=== PATIENT | male | born 1960 | race Caucasian/White ===

== ENCOUNTER 2016-07-18 07:40 | Day surgery (SDC) | payer OTHER ==
[2016-07-17 12:23] VITALS: BMI 21.7
[2016-07-18 09:18] VITALS: TEMP 97.5
[2016-07-18] MEDS ORDERED: PROPOFOL 20 ML ONE ×5 (09:21)
[2016-07-18] MEDS ORDERED: LIDOCAINE HCL/PF 2% SDV 5ML VIAL ONE (09:21)
[2016-07-18 11:09] VITALS: BP 117/70; PULSE 73
--- NOTE | 2016-07-19 11:48 | PATH ---
Surgical Pathology Report Patient Name: ALEX LAUGHLIN [facility]. Rec. #: [id number] /Age/Gender: 1960 (Age: 55) / M Account: [id number] Location: [facility]-ENDOSCOPY Taken: 07/18/2016 Received: 07/18/2016 Reported: 07/19/2016 Physicians: Aung Sharma M.D. Specimen(s) Received A: BX GASTRIC BODY B: BX MID ESOPHAGUS Clinical History Dysphagia, colon screening Gastritis, colon diverticuli Final Diagnosis A. STOMACH, BODY, BIOPSY: MODERATE TO SEVERE CHRONIC ACTIVE GASTRITIS. IMMUNOSTAIN FOR H. PYLORI IS POSITIVE (MODERATE NUMBER OF ORGANISMS). B. MID ESOPHAGUS, BIOPSY: SQUAMOUS EPITHELIUM WITH PAPILLOMATOSIS SUGGESTIVE OF REFLUX ESOPHAGITIS, AND GASTRIC MUCOSA WITH MODERATE CHRONIC ACTIVE GASTRITIS. NO INTESTINAL METAPLASIA IDENTIFIED (NO CHAU'S IDENTIFIED). NO EOSINOPHILIC ESOPHAGITIS IDENTIFIED. Electronically Signed Lamin Dawson M.D. Gross Description A. Received in formalin, labeled "biopsy gastric body" are 4 serna, irregular portions of soft tissue ranging from 0.1-0.4 cm. in greatest dimension. The specimens are submitted in toto in one cassette. B. Received in formalin, labeled "biopsy midesophagus" are 3 serna, irregular portions of soft tissue ranging from 0.1-0.2 cm. in greatest dimension. The specimens are submitted in toto in one cassette. 07/18/2016 saudi07/18/2016
== END 2016-07-18 10:35 | disposition home or self-care (01) ==
LOC: JASU-ENDO 07:40
PROVIDERS: ATTEND Internal Medicine Gastroenterology
PROC: 0DB68ZX Excision of Stomach, Via Natural or Artificial Opening Endoscopic, Diagnostic (ICD-10-PCS; 2016-07-18)
PROC: 0DJD8ZZ Inspection of Lower Intestinal Tract, Via Natural or Artificial Opening Endoscopic (ICD-10-PCS; 2016-07-18)
PROC: 0DB58ZX Excision of Esophagus, Via Natural or Artificial Opening Endoscopic, Diagnostic (ICD-10-PCS; principal; 2016-07-18 08:30)
DX: R13.10 Dysphagia, unspecified (principal); Z12.11 Encounter for screening for malignant neoplasm of colon; K57.30 Diverticulosis of large intestine without perforation or abscess without bleeding; G20 Parkinson's disease
CPT/HCPCS: 43239; G0121; 88305-TC; 88342-TC

== ENCOUNTER 2016-10-17 20:19 | Emergency (ER) | payer OTHER ==
[2016-10-17 20:31] VITALS: BP 151/98; PULSE 66; TEMP 97.6; BMI 20.3
--- NOTE | 2016-10-17 20:34 | PDOC ---
History of Present Illness - General History Source: Patient Exam Limitations: No Limitations - History of Present Illness Initial Comments: 10/17/16 21:02 56 y/o M with a PMHx of Parkinsons disease, JENNIFER presents to the ED with bloating and upper abdominal pressure for 2-3 weeks. He reports that the pressure causes him to have some difficulty catching his breath. He took a Gas- X today, which made it worse. He denies associated chest pain or abdominal pain. He reports that due to his Parkinsons, he has had decreased food intake because he has difficulty swallowing. His last BM was today at noon. He recently had an endoscopy and colonoscopy, which came back normal. He also recently had H.pylori and was on antibiotics for 14 days. Denies fever, chills, nausea, vomiting, diarrhea, dysuria. PCP: Dr. Carlos Arias GI: Dr. Aung Sharma <Evie Cortes - Last Filed: 10/17/16 21:02> <China Angel - Last Filed: 10/17/16 23:52> - General Chief Complaint: Pain, Acute Stated Complaint: STATES HE HAS PRESSURE IN UPPER ABDOMEN Time Seen by Provider: 10/17/16 20:21 Past History <Evie Cortes - Last Filed: 10/17/16 21:02> - Past Medical History GI Disorders: Yes (DYSPHAGIA) Other medical history: PARKINSON - Surgical History Appendectomy: Yes - Psycho/Social/Smoking Cessation Hx Anxiety: No Suicidal Ideation: No Smoking History: Never smoked Have you smoked in the past 12 months: No If you are a former smoker, when did you quit?: 25 YRS AGO Information on smoking cessation initiated: No Hx Alcohol Use: No Drug/Substance Use Hx: No Substance Use Type: None Hx Substance Use Treatment: No <China Angel - Last Filed: 10/17/16 23:52> - Past Medical History Allergies/Adverse Reactions: Allergies Allergy/AdvReac Type Severity Reaction Status Date / Time No Known Allergies Allergy Verified 10/17/16 20:21 Home Medications: Ambulatory Orders Atorvastatin Ca [Lipitor] 20 mg PO HS 07/17/16 Carbidopa/Levodopa [Carbidopa-Levodopa 25-100 Tab] 1 each PO TID 07/17/16 Clonazepam [Klonopin -] 0.5 mg PO HS 07/17/16 Ropinirole HCl [Ropinirole ER] 12 mg PO DAILY 07/17/16 Review of Systems - Review of Systems Comments:: 10/17/16 21:02 GENERAL/CONSTITUTIONAL: No fever or chills. No weakness. HEAD, EYES, EARS, NOSE AND THROAT: No change in vision. No ear pain or discharge. No sore throat. CARDIOVASCULAR: No chest pain or shortness of breath. RESPIRATORY: No cough, wheezing, or hemoptysis. GASTROINTESTINAL: (+) abdominal pressure/bloating. No nausea, vomiting, diarrhea or constipation. GENITOURINARY: No dysuria, frequency, or change in urination. MUSCULOSKELETAL: No joint or muscle swelling or pain. No neck or back pain. SKIN: No rash NEUROLOGIC: No headache, vertigo, loss of consciousness, or change in strength/ sensation. ENDOCRINE: No increased thirst. No abnormal weight change. HEMATOLOGIC/LYMPHATIC: No anemia, easy bleeding, or history of blood clots. ALLERGIC/IMMUNOLOGIC: No hives or skin allergy. <Evie Cortes - Last Filed: 10/17/16 21:02> *Physical Exam - Vital Signs Last Vital Signs Temp Pulse Resp BP Pulse Ox 97.6 F 66 18 151/98 100 10/17/16 20:25 10/17/16 20:25 10/17/16 20:25 10/17/16 20:25 10/17/16 20:25 - Physical Exam Comments: 10/17/16 21:02 GENERAL: Awake, alert, and fully oriented, in no acute distress. Thin. HEAD: No signs of trauma EYES: PERRLA, EOMI, sclera anicteric, conjunctiva clear ENT: Auricles normal inspection, hearing grossly normal, nares patent, oropharynx clear without exudates. Moist mucosa NECK: Normal ROM, supple, no lymphadenopathy, JVD, or masses LUNGS: Breath sounds equal, clear to auscultation bilaterally. No wheezes, and no crackles HEART: Regular rate and rhythm, normal S1 and S2, no murmurs, rubs or gallops ABDOMEN: Soft, nontender, normoactive bowel sounds. No guarding, no rebound. No masses EXTREMITIES: Normal range of motion, no edema. No clubbing or cyanosis. No cords, erythema, or tenderness NEUROLOGICAL: Cranial nerves II through XII grossly intact. Normal speech, normal gait SKIN: Warm, Dry, normal turgor, no rashes or lesions noted. <Evie Cortes - Last Filed: 10/17/16 21:02> - Vital Signs Last Vital Signs Temp Pulse Resp BP Pulse Ox 97.6 F 66 18 151/98 100 10/17/16 20:25 10/17/16 20:25 10/17/16 20:25 10/17/16 20:25 10/17/16 20:25 <China Angel - Last Filed: 10/17/16 23:52> Heart Score/ECG Review - History History: Slightly suspicious - Electrocardiogram EKG: Normal - Age Age: 45-65 - Risk Factors Risk Factors Heart Score: Yes Hx Hypercholesterolemia Based on the list above the patient has:: 1-2 risk factors - Troponin Troponin: </= normal limit - Score Heart Score - Total: 2 - ECG Impressions Comment:: EKG read 20:30- sinus mynor 59 bpm, no ST/T changes <China Angel - Last Filed: 10/17/16 23:52> ED Treatment Course - LABORATORY CBC & Chemistry Diagram: 10/17/16 20:56 10/17/16 20:56 <China Angel - Last Filed: 10/17/16 23:52> Medical Decision Making - Medical Decision Making Pt with history of Parkinson's, has had GI motility issues related to his medication. He is following up with Dr. Sharma and his neurologist. He states that the symptoms are worse with certain foods. Today it was worse than usual. Symptoms resolved as he arrived in ED. No acute findings on EKG. Labs wnl with exception of TBili. US wnl. Stable for DC home with outpatient f/u. <China Angel - Last Filed: 10/17/16 23:52> *DC/Admit/Observation/Transfer - Attestations Scribe Attestion: 10/17/16 21:03 Documentation prepared by Evie Cortes, acting as adjunct faculty for medical terminology for China Angel MD. <Evie Cortes - Last Filed: 10/17/16 21:02> - Discharge Dispostion Admit: No <China Angel - Last Filed: 10/17/16 23:52> Diagnosis at time of Disposition: Epigastric pain - Discharge Dispostion Disposition: HOME Condition at time of disposition: Stable - Referrals Referrals: Carlos Arias MD [Primary Care Provider] - - Patient Instructions Printed Discharge Instructions: DI for Epigastric Pain
[2016-10-17 21:19] LABS: BASOPHIL 0.2 % (0-2.0); EOSINOPHIL 1.6 % (0-4.5); MCH 28.3 pg (25.7-33.7); MCHC 33.8 g/dl (32.0-35.9); MEAN CELL VOLUME 83.7 fl (80-96); MEAN PLT VOLUME 7.8 fl (7.5-11.1); NEUTROPHILS 60.6 % (42.8-82.8); PLATELET COUNT 241 K/MM3 (134-434); RDW 13.3 % (11.9-15.9); WHITE BLOOD COUNT 4.6 K/mm3 (4.0-10.8)
[2016-10-17 21:29] LABS: ALBUMIN 4.8 g/dl (3.5-5.0); ALK PHOS 47 U/L (32-92); ANION GAP 7 (8-16); BILIRUBIN,TOTAL 2.3 mg/dl (0.2-1.0); CALCIUM 9.6 mg/dl (8.4-10.2); CO2 29 mmol/L (22-28); CPK 157 IU/L (39-308); GLUCOSE,RANDOM 101 mg/dl (74-106); SGOT/AST 17 U/L (10-42); TOT PROT 6.9 g/dl (6.4-8.3)
[2016-10-17 21:39] LABS: SGPT/ALT 8 U/L (10-40)
[2016-10-17 21:44] LABS: TROPONIN I (DFP) < 0.03 ng/ml (0.03-0.50)
--- NOTE | 2016-10-18 18:22 | EKG ---
Test Reason : Blood Pressure : / mmHG Vent. Rate : 059 BPM Atrial Rate : 059 BPM P-R Int : 138 ms QRS Dur : 078 ms QT Int : 430 ms P-R-T Axes : 069 046 047 degrees QTc Int : 425 ms SINUS BRADYCARDIA NO PREVIOUS ECGS AVAILABLE Confirmed by MD TABARES MARJORY ([id number]) on 10/18/2016 6:22:14 PM Referred By: DR MCDERMOTT Confirmed By:RADHA TABARES MD
== END 2016-10-18 00:18 | disposition home or self-care (01) ==
LOC: FER 20:19
DX: R10.13 Epigastric pain (principal); G20 Parkinson's disease; R13.10 Dysphagia, unspecified; Z87.891 Personal history of nicotine dependence
CPT/HCPCS: 36415; 76705-TC; 80053; 82553; 84484; 85025; 93005; 99282-25

== ENCOUNTER 2016-10-23 05:27 | Emergency (ER) | payer OTHER ==
--- NOTE | 2016-10-23 05:39 | PDOC ---
History of Present Illness - General Chief Complaint: Pain, Acute Stated Complaint: PRESSURE ABDOMEN BACK AND HEADX 2 WEEKS Time Seen by Provider: 10/23/16 05:38 - History of Present Illness Initial Comments: This 56-year-old man with a history of Parkinson's disease presents with persistent epigastric discomfort/bloating and sensation of inability to fully swallow his food. Patient describes discomfort with swallowing radiating to bilateral base of neck occasionally. Patient has known history of digestive issues and was seen here one week ago with similar discomfort. Workup at that point was negative and he was referred back to his federal district clerk, Dr. Sharma. He recently was treated for Helicobacter pylori and re-testing after treatment is pending. Patient states when he was on omeprazole during the time of the H. pylori treatment and previously when he was taking it on its own, he had much diminished symptoms. He states that his federal district clerk however does not want him to be on omeprazole because he does not believe he has GERD. Past History - Past Medical History Allergies/Adverse Reactions: Allergies Allergy/AdvReac Type Severity Reaction Status Date / Time No Known Allergies Allergy Verified 10/23/16 05:30 Home Medications: Ambulatory Orders Atorvastatin Ca [Lipitor] 20 mg PO HS 07/17/16 Carbidopa/Levodopa [Carbidopa-Levodopa 25-100 Tab] 1 each PO TID 07/17/16 Clonazepam [Klonopin -] 0.5 mg PO HS 07/17/16 Ropinirole HCl [Ropinirole ER] 12 mg PO DAILY 07/17/16 Omeprazole 40 mg PO DAILY #20 capsule. 10/23/16 GI Disorders: Yes (DYSPHAGIA) Hypercholesterolemia: Yes - Surgical History Appendectomy: Yes - Psycho/Social/Smoking Cessation Hx Anxiety: No Suicidal Ideation: No Smoking History: Never smoked Have you smoked in the past 12 months: No If you are a former smoker, when did you quit?: 25 YRS AGO Hx Alcohol Use: No Drug/Substance Use Hx: No Substance Use Type: None Hx Substance Use Treatment: No *Physical Exam - Physical Exam Comments: GENERAL: Adult male, masklike facies but alert and oriented 3 HEAD: Normal with no signs of trauma. EYES: PERRLA, EOMI, sclera anicteric, conjunctiva clear. ENT: Ears normal, nares patent, oropharynx clear without exudates. Dry mucous membranes. NECK: Normal range of motion, supple without lymphadenopathy, JVD, or masses. LUNGS: Breath sounds equal, clear to auscultation bilaterally. No wheezes, and no crackles. HEART:Regular rate and rhythm, normal S1 and S2 without murmur, rub or gallop. ABDOMEN:.normal bowel sounds No guarding,tenderness or rebound.No masses No distention. EXTREMITIES: Normal range of motion, no edema. No clubbing or cyanosis. No erythema, or tenderness. NEUROLOGICAL: Cranial nerves II through XII grossly intact. Normal speech. No focal neurological deficits. MUSCULOSKELETAL: Back non-tender to palpation, no CVA tenderness SKIN: Warm, Dry, normal turgor, no rashes or lesions noted. 12-lead electrocardiogram shows sinus bradycardia 57 beats per minute; axis, intervals and wave forms are all normal. It is unchanged from EKG performed Medical Decision Making - Medical Decision Making 10/23/16 06:42 This 56-year-old man with a history of Parkinson's disease presents with recurrent epigastric discomfort and feeling of bloating/difficulty in swallowing. The difficulty in swallowing is not occurring at the throat or proximal esophagus level but is occurring distally. This is a known problem for this patient and he was seen here last week and full workup was negative. Exam is unremarkable 12-lead electrocardiogram was performed and shows no acute abnormalities and is unchanged from last week's EKG Since patient's exam is generally unremarkable without evidence of acute intra- abdominal process, with full workup last week being normal, we will restart the patient on omeprazole 40 mg daily (since he had significantly diminished symptoms when he was taking this medication). He can follow-up with Dr. Sharma to fully discussed risks/benefits of taking a PPI. Meanwhile, if he has worsening of his symptoms or experiences vomiting/fever as she return to the emergency room. The patient will also follow-up with his neurologist within the next 5 days *DC/Admit/Observation/Transfer Diagnosis at time of Disposition: Epigastric discomfort - Discharge Dispostion Disposition: HOME Condition at time of disposition: Stable - Prescriptions Prescriptions: Omeprazole 40 mg PO DAILY #20 capsule.dr - Patient Instructions Printed Discharge Instructions: Gastroparesis Additional Instructions: Omeprazole 40 mg daily Continue other medications as prescribed Follow-up with your neurologist and with Dr. Sharma as scheduled Return to ER if you have severe pain/vomiting/fever
[2016-10-23 05:40] VITALS: BP 131/82; PULSE 60; TEMP 97.3; BMI 18.8
--- NOTE | 2016-10-23 17:43 | EKG ---
Test Reason : Blood Pressure : / mmHG Vent. Rate : 057 BPM Atrial Rate : 057 BPM P-R Int : 140 ms QRS Dur : 072 ms QT Int : 434 ms P-R-T Axes : 066 061 056 degrees QTc Int : 422 ms SINUS BRADYCARDIA SEPTAL INFARCT , AGE UNDETERMINED WHEN COMPARED WITH ECG OF 17-OCT-2016 20:27, SEPTAL INFARCT IS NOW PRESENT Confirmed by MD RAYSA, RADHA ([id number]) on 10/23/2016 5:43:21 PM Referred By: MD ALLEN Confirmed By:RADHA TABARES MD
== END 2016-10-23 06:40 | disposition home or self-care (01) ==
LOC: FER 05:27
DX: R10.13 Epigastric pain (principal); G20 Parkinson's disease; E78.00 Pure hypercholesterolemia, unspecified
CPT/HCPCS: 93005; 99281-25

== ENCOUNTER 2020-10-20 08:27 | Observation (INO) | payer OTHER ==
[2020-10-20 09:07] LABS: BASO % 0.6 % (0-2.0); EOS % 1.2 % (0-4.5); HEMATOCRIT 43.1 % (35.4-49); HEMOGLOBIN 14.7 GM/dL (11.7-16.9); LYMPH % 26.8 % (8-40); MCH 28.6 pg (25.7-33.7); MEAN PLT VOLUME 7.4 fl (7.5-11.1); MONO % 5.8 % (3.8-10.2); NEUT % 65.6 % (42.8-82.8); PLATELET COUNT 239 10^3/uL (134-434); RBC 5.13 M/mm3 (4.00-5.60); RDW 14.2 % (11.9-15.9); WHITE BLOOD COUNT 4.7 K/mm3 (4.0-10.0)
[2020-10-20] MEDS ORDERED: MAG HYDROX/AL HYDROX/SIMETH 30 ML UNIT-DOSE CUP PO ONE (09:13)
[2020-10-20] MEDS ORDERED: FAMOTIDINE 20 MG/50 ML IVPB 20 MG/50 ML MG IVPB ONE ×2 (09:13→09:18)
[2020-10-20 09:14] LABS: INR 0.87 (0.83-1.09); PROTHROMBIN TIME (PATIENT) 10.7 SEC (9.7-13.0)
[2020-10-20] MEDS ORDERED: NITROGLYCERIN 2% OINTMENT - 1GM PACKET TD ONE ×2 (09:14→09:18)
[2020-10-20 09:16] LABS: ACTIVATED PTT 28.6 SECONDS (25.2-36.5)
[2020-10-20] MEDS ORDERED: MAG HYDROX/AL HYDROX/SIMETH 30 ML UNIT-DOSE CUP ONE (09:18)
[2020-10-20 09:25] LABS: CHLORIDE 105 mmol/L (98-107); SODIUM 142 mmol/L (136-145)
[2020-10-20 09:27] LABS: CALCIUM 9.8 mg/dL (8.5-10.1)
[2020-10-20 09:28] LABS: ANION GAP 8 MMOL/L (8-16); BLOOD UREA NITROGEN 13.9 mg/dL (7-18); CO2 30 mmol/L (21-32); GLUCOSE,RANDOM 112 mg/dL (74-106)
[2020-10-20 09:31] LABS: CREATININE 0.9 mg/dL (0.55-1.3); SGOT/AST 16 U/L (15-37); SGPT/ALT 10 U/L (13-61)
[2020-10-20 09:33] LABS: BILIRUBIN,TOTAL 0.8 mg/dL (0.2-1); TOT PROT 6.4 g/dl (6.4-8.2)
[2020-10-20 09:34] LABS: ALK PHOS 75 U/L (45-117)
[2020-10-20 10:01] LABS: MAGNESIUM 2.2 mg/dL (1.8-2.4)
[2020-10-20] MEDS ORDERED: clonazePAM 0.5 MG TABLET PO PRN (15:20)
[2020-10-20 21:42] VITALS: PULSE 88; BMI 20.6
[2020-10-20] MEDS ORDERED: SENNOSIDES 8.6MG TABLET (FP) PO SCH (22:00)
[2020-10-20] MEDS: HEPARIN NA (PORCINE) 5,000 UNITS/ML 1ML VIAL SQ SCH (22:31)
[2020-10-21 07:25] LABS: HEMATOCRIT 42.1 % (35.4-49); HEMOGLOBIN 14.3 GM/dL (11.7-16.9); MCH 28.9 pg (25.7-33.7); MEAN CELL VOLUME 85.1 fl (80-96); MEAN PLT VOLUME 7.7 fl (7.5-11.1); PLATELET COUNT 241 10^3/uL (134-434); RBC 4.94 M/mm3 (4.00-5.60); RDW 13.8 % (11.9-15.9); WHITE BLOOD COUNT 6.4 K/mm3 (4.0-10.0)
[2020-10-21 07:42] LABS: ALBUMIN 3.8 g/dl (3.4-5.0); BLOOD UREA NITROGEN 13.6 mg/dL (7-18); CALCIUM 9.2 mg/dL (8.5-10.1); MAGNESIUM 2.5 mg/dL (1.8-2.4)
[2020-10-21 07:46] LABS: BILIRUBIN,TOTAL 1.9 mg/dL (0.2-1)
[2020-10-21 07:47] LABS: TOT PROT 6.4 g/dl (6.4-8.2)
[2020-10-21 08:05] VITALS: BP 145/88; TEMP 98
[2020-10-21] MEDS ORDERED: ASPIRIN 81 MG CHEWABLE TABLETS PO SCH (10:00)
[2020-10-21] MEDS ORDERED: REGADENOSON 0.4 MG/5 ML PRE-FILLED SYRINGE IVPUSH ONE (10:05)
[2020-10-21] MEDS: HEPARIN NA (PORCINE) 5,000 UNITS/ML 1ML VIAL SQ SCH (12:49)
[2020-10-21] MEDS ORDERED: ATORVASTATIN CA 40 MG TABLET (FP) PO SCH (22:00)
== END 2020-10-21 16:15 | disposition home or self-care (01) ==
LOC: JER 08:27 → JERBED 13:23 → J4W 20:29
PROVIDERS: ADMIT Internal Medicine
PROC: 3E033GC Introduction of Other Therapeutic Substance into Peripheral Vein, Percutaneous Approach (ICD-10-PCS; principal; 2020-10-20)
PROC: 3E023GC Introduction of Other Therapeutic Substance into Muscle, Percutaneous Approach (ICD-10-PCS; 2020-10-20)
DX: I24.9 Acute ischemic heart disease, unspecified (principal); R10.13 Epigastric pain; G20 Parkinson's disease; F41.9 Anxiety disorder, unspecified; I10 Essential (primary) hypertension; E78.5 Hyperlipidemia, unspecified
CPT/HCPCS: 36415; 71045-TC-FY; 78452-TC; 80053; 80061; 82550; 82553; 83036; 83735; 84443; 84484; 85025; 85027; 85610; 85730; 93005; 93010; 93017; 93306-TC; 97116-GP; 97161-GP; 99285-25; A9502; C9803; G0378; J1644; U0003; U0005

== ENCOUNTER 2021-02-26 02:39 | Emergency (ER) | payer OTHER ==
[2021-02-26 02:51] VITALS: BP 100/71; PULSE 94; BMI 21.2
== END 2021-02-26 04:40 | disposition home or self-care (01) ==
LOC: JER 02:39
DX: F41.9 Anxiety disorder, unspecified (principal)
CPT/HCPCS: 93005; 93010; 99283-25